=== PATIENT | female | born 1960 | race African-American/Black ===

== ENCOUNTER 2017-04-14 11:54 | Emergency (ER) | payer BC, OTHER ==
[~2017-04-14] VITALS: Ht 175.3 cm; Wt 102.3 kg
[~2017-04-14 11:54] MED LIST: AMLO5TAB22 PO; LISI-366 PO; NAPR-576 PO; PROBCAP4 PO
[2017-04-14 11:58] VITALS: BP 145/74; PULSE 82; RESP 18; TEMP 99.4; O2SAT 98
[2017-04-14] MEDS ORDERED: SODIUM CHLOR 0.9% 1000 ML INJ 1,000 ML IV ONE (12:30)
[2017-04-14] MEDS ORDERED: KETOROLAC TROMETHAMINE 30 MG/ML (IVP) VIAL IV PUSH ONE (12:30)
[2017-04-14] MEDS ORDERED: PROCHLORPERAZINE INJ 10 MG/2 ML VIAL IV PUSH ONE (12:30)
[2017-04-14] MEDS ORDERED: diphenhydrAMINE HCL 50 MG/ML VIAL IV PUSH ONE (12:30)
[2017-04-14] MEDS ORDERED: REDPOW2 (12:34)
[2017-04-14] MEDS ORDERED: GARL1CAP6 (12:34)
[2017-04-14] MEDS ORDERED: LISI40TA PO (12:34)
[2017-04-14] MEDS ORDERED: AMLO5TAB2 PO (12:34)
[2017-04-14] MEDS ORDERED: CODOIL15 (12:34)
[2017-04-14] MEDS ORDERED: FLAV3.7O (12:34)
[2017-04-14 12:56] VITALS: BP 143/76; PULSE 75; RESP 18; O2SAT 98
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
[2017-04-14] MEDS ORDERED: BUTA1CAP PO (13:27)
== END 2017-04-14 13:44 | disposition home or self-care (01) ==
LOC: PHED 11:54
DX: G44.209 Tension-type headache, unspecified, not intractable (principal); I10 Essential (primary) hypertension
CPT/HCPCS: 96361; 96374; 96375; 99284; J0780; J1200; J1885; J7030

== ENCOUNTER 2017-09-14 11:09 | Emergency (ER) | payer BC, OTHER ==
[~2017-09-14] VITALS: Ht 175.3 cm; Wt 102.6 kg
[~2017-09-14 11:09] MED LIST changes: +AMLO5TAB2 PO; -AMLO5TAB22 PO; +BUTA1CAP PO; +CODOIL15; +FLAV3.7O; +GARL1CAP6; -LISI-366 PO; +LISI40TA PO; -NAPR-576 PO; -PROBCAP4 PO; +REDPOW2
[2017-09-14 11:13] VITALS: BP 142/63; PULSE 79; RESP 16; TEMP 98.4; O2SAT 98
[2017-09-14] MEDS ORDERED: CHOLMIS5 PO (11:36)
[2017-09-14] MEDS ORDERED: GARL200T2 PO (11:36)
[2017-09-14 11:49] LABS: BILIRUBIN, URINE NEG (NEG); BLOOD, URINE LARGE (NEG); GLUCOSE,URINE NEG (NEG); KETONE, URINE NEG (NEG); NITRITE,URINE NEG (NEG); URINE COLOR YELLOW (YELLW/STRAW); URINE LEUKOCYTE ESTERASE SMALL (NEG)
[2017-09-14 11:55] LABS: SQUAMOUS EPITHELIAL CELL URINE 0-5 /hpf (0-5); WHITE BLOOD CELL CLUMPS FEW
[2017-09-14 11:56] LABS: RENAL EPITHELIAL CELLS 0-5 /hpf
--- NOTE | 2017-09-14 12:06 | PD ---
HPI Chief Complaint: Abdominal Pain Time Seen by Provider: 11:43 Travel History International Travel<30 days: No Contact w/Intl Traveler<30days: No Traveled to known affect area: No History of Present Illness HPI 56yo F with no PMH of colon CA s/p resection when she was 10yo here with c/o lower abdominal pain, increased urinary complaint for a few days. Denies any fever, chest pain, sob, n/v, vaginal bleeding or discharge. Denies any focal weakness or numbness. PFSH Past Medical History Cancer: Yes (COLON 10 YRS OLD) Cardiovascular Problems: Yes (htn on meds) Diminished Hearing: No Hypertension: Yes Tetanus Vaccination: < 5 Years Influenza Vaccination: No ?: Not LMP: NONE 40S Menopausal: Yes Past Surgical History Abdominal Surgery: Yes (COLON CA 10 YRS OLD) Section: Yes Gynecologic Surgery: Yes (3 c-sections) Social History Alcohol Use: Yes (rare wine) Tobacco Use: No Substance Use: No Allergies-Medications (Allergen,Severity, Reaction): Coded Allergies: No Known Allergies (Unverified Adverse Reaction, Unknown, 09/14/17) Reported Meds & Prescriptions Reported Meds & Active Scripts Active Reported [Cholesterol] 1 Tab PO DAILY Garlic 200 Mg Tab 1 Tab PO DAILY Cod Liver Oil 100 % Oil Unknown Dose Cinnamon (Flavoring Agent) 3.7 Ml Oil Unknown Dose Lisinopril 40 Mg Tab 40 Mg PO DAILY Amlodipine (Amlodipine Besylate) 5 Mg Tab 5 Mg PO DAILY Review of Systems Except as stated in HPI: all other systems reviewed are Neg Physical Exam Narrative GENERAL: 56yo F not in distress. SKIN: Focused skin assessment warm/dry. HEAD: Atraumatic. Normocephalic. CARDIOVASCULAR: Regular rate and rhythm. No murmur appreciated. RESPIRATORY: No accessory muscle use. Clear to auscultation. Breath sounds equal bilaterally. GASTROINTESTINAL: Abdomen soft, non-tender,+TTP periumbilical region. No rebound tenderness or guarding. +Surgical scar. MUSCULOSKELETAL: No obvious deformities. No clubbing. No cyanosis. No edema. NEUROLOGICAL: Awake and alert. No obvious cranial nerve deficits. Motor grossly within normal limits. Normal speech. PSYCHIATRIC: Appropriate mood and affect; insight and judgment normal. Data Data Last Documented VS Vital Signs Date Time Temp Pulse Resp B/P (MAP) Pulse Ox O2 Delivery O2 Flow Rate FiO2 09/14/17 11:13 98.4 79 16 142/63 (89) 98 Orders Orders Urinalysis - C+S If Indicated (09/14/17 11:12) Complete Blood Count With Diff (09/14/17 11:47) Comprehensive Metabolic Panel (09/14/17 11:47) Lipase (09/14/17 11:47) Ct Abd/Pel W Iv Contrast(Rout) (09/14/17 11:47) Urine Culture (09/14/17 11:40) Iohexol 350 Inj (Omnipaque 350 Inj) (09/14/17 12:20) Ceftriaxone Inj (Rocephin Inj) (09/14/17 12:30) Ketorolac Inj (Toradol Inj) (09/14/17 13:00) Labs Laboratory Tests Test 09/14/17 11:40 09/14/17 12:06 Urine Collection Type CLEAN CATCH Urine Color YELLOW Urine Turbidity CLOUDY Urine pH 6.0 Urine Specific [place] 1.025 Urine Protein 100 mg/dL Urine Glucose (UA) NEG mg/dL Urine Ketones NEG mg/dL Urine Occult Blood LARGE Urine Nitrite NEG Urine Bilirubin NEG Urine Urobilinogen 0.2 MG/DL Urine Leukocyte Esterase SMALL Urine RBC 50-99 /hpf Urine WBC 50-99 /hpf Urine WBC Clumps FEW Urine Squamous Epithelial Cells 0-5 /hpf Urine Renal Epithelial Cells 0-5 /hpf Microscopic Urinalysis Comment CULTURE INDICATED Urine Collection Time 11:40 White Blood Count 5.7 TH/MM3 Red Blood Count 4.61 MIL/MM3 Hemoglobin 12.1 GM/DL Hematocrit 36.9 % Mean Corpuscular Volume 80.0 FL Mean Corpuscular Hemoglobin 26.3 PG Mean Corpuscular Hemoglobin Concent 32.9 % Red Cell Distribution Width 13.2 % Platelet Count 235 TH/MM3 Mean Platelet Volume 7.8 FL Neutrophils (%) (Auto) 68.3 % Lymphocytes (%) (Auto) 21.6 % Monocytes (%) (Auto) 8.8 % Eosinophils (%) (Auto) 0.7 % Basophils (%) (Auto) 0.6 % Neutrophils # (Auto) 4.0 TH/MM3 Lymphocytes # (Auto) 1.2 TH/MM3 Monocytes # (Auto) 0.5 TH/MM3 Eosinophils # (Auto) 0.0 TH/MM3 Basophils # (Auto) 0.0 TH/MM3 CBC Comment DIFF FINAL Differential Comment Blood Urea Nitrogen 12 MG/DL Creatinine 0.68 MG/DL Random Glucose 88 MG/DL Total Protein 7.9 GM/DL Albumin 3.3 GM/DL Calcium Level 8.8 MG/DL Alkaline Phosphatase 100 U/L Aspartate Amino Transf (AST/SGOT) 20 U/L Alanine Aminotransferase (ALT/SGPT) 28 U/L Total Bilirubin 0.3 MG/DL Sodium Level 140 MEQ/L Potassium Level 4.0 MEQ/L Chloride Level 106 MEQ/L Carbon Dioxide Level 28.0 MEQ/L Anion Gap 6 MEQ/L Estimat Glomerular Filtration Rate 109 ML/MIN Lipase 132 U/L [facility] Medical Decision Making Medical Screen Exam Complete: Yes Emergency Medical Condition: Yes Differential Diagnosis UTI vs. colitis vs. cystitis Narrative Course 56yo F with urinary complaints and abdominal pain. Vital signs normal. Labs reviewed, no leukocytosis. H/H normal. CMP unremarkable. Lipase normal. UA showed WBC 50-99. Pt given ceftriaxone 1 gm IV and toradol for pain. CT a/p showed diffusely thickened bladder wall with mucosal enhancement, differential include cystitis. Pt reevaluated at bedside and feels better. Pt is well appearing and tolerating PO so will treat as outpatient. Return precautions given. Diagnosis Primary Impression: Cystitis Patient Instructions: General Instructions Departure Forms: Tests/Procedures Additional Instructions: Please follow up with your primary care physician in 2-3 days. Return to the ED if symptoms worsen. Med/Other Pt SpecificInfo: Prescription(s) given Scripts Cephalexin (Keflex) 500 Mg Cap 500 MG PO Q12H for Infection for 7 Days, #14 CAP 0 Refills Prov: MooMandy 09/14/17 Disposition: 01 DISCHARGE HOME Condition: Stable CortésMandy DO Sep 14, 2017 12:06
[2017-09-14 12:16] LABS: BASOPHIL % 0.6 % (0.0-2.0); EOSINOPHIL % 0.7 % (0.0-4.0); HEMATOCRIT 36.9 % (35.0-46.0); HEMOGLOBIN 12.1 GM/DL (11.6-15.3); LYMPH % 21.6 % (9.0-44.0); LYMPHOCYTE # 1.2 TH/MM3 (1.0-4.8); MEAN CORPUSCULAR HEMOGLOBIN 26.3 PG (27.0-34.0); MEAN CORPUSCULAR HGB CONC 32.9 % (32.0-36.0); MEAN PLATELET VOLUME 7.8 FL (7.0-11.0); MONO % 8.8 % (0.0-8.0); MONOCYTE # 0.5 TH/MM3 (0-0.9); NEUT % 68.3 % (16.0-70.0); PLATELET COUNT 235 TH/MM3 (150-450); RED BLOOD COUNT 4.61 MIL/MM3 (4.00-5.30); RED CELL DISTRIBUTION WIDTH 13.2 % (11.6-17.2); WHITE BLOOD COUNT 5.7 TH/MM3 (4.0-11.0)
[2017-09-14] MEDS ORDERED: IOHEXOL 350 MG/ML 10 ML VIAL (for RAD DIAG) IVCONTRAST ONE (12:20)
[2017-09-14 12:30] LABS: CHLORIDE 106 MEQ/L (98-107); SODIUM (NA) 140 MEQ/L (136-145)
[2017-09-14] MEDS ORDERED: cefTRIAXone INJ 1,000 MG in SODIUM CHLORIDE 0.9% INJ 100 ML IV ONE (12:30)
[2017-09-14 12:33] LABS: CALCIUM 8.8 MG/DL (8.5-10.1)
[2017-09-14 12:34] LABS: ALBUMIN 3.3 GM/DL (3.4-5.0); BLOOD UREA NITROGEN 12 MG/DL (7-18); GLUCOSE,RANDOM 88 MG/DL (74-106)
--- NOTE | 2017-09-14 12:35 | RADRPT ---
EXAM DATE/TIME: 09/14/2017 12:12 [facility] COMPARISON: No previous studies available for comparison. INDICATIONS : Lower abdominal pain. IV CONTRAST: 85 cc Omnipaque 350 (iohexol) IV ORAL CONTRAST: No oral contrast ingested. RADIATION DOSE: 20.48 CTDIvol (mGy) MEDICAL HISTORY : Carcinoma, colon. Cerebrovascular disease. Hypertension. SURGICAL HISTORY : Colon resection. section. ENCOUNTER: Initial ACUITY: 4 - 6 days PAIN SCALE: 8/10 LOCATION: Bilateral lower quadrant TECHNIQUE: Volumetric scanning of the abdomen and pelvis was performed. Using automated exposure control and ad justment of the mA and/or kV according to patient size, radiation dose was kept as low as reasonably achievable to obtain optimal diagnostic quality images. DICOM format image data is available electro nically for review and comparison. FINDINGS: Lung bases are clear. No acute findings in the liver, spleen, adrenals, kidneys or pancreas. No calci fied gallstones identified. The uterus has a slightly lobulated appearance which could indicate fibroid involvement. The bladder wall appears thickened diffusely with some mucosal enhancement. Differential diagnosis in cludes cystitis. CONCLUSION: 1. Diffusely thickened bladder wall with mucosal enhancement. Differential diagnosis includes cystiti s. 2. Slightly lobulated uterus most characteristic of fibroid involvement. Mild constipation. 3. Small hiatal hernia. Duran Michaels MD on September 14, 2017 at 12:27 Board Certified Radiologist. This report was verified electronically.
[2017-09-14 12:36] LABS: ALT (GPT) 28 U/L (10-53); AST (GOT) 20 U/L (15-37)
[2017-09-14 12:37] LABS: CREATININE 0.68 MG/DL (0.50-1.00); GLOMERULAR FILTRATION RATE 109 ML/MIN (>89)
[2017-09-14 12:38] LABS: TOTAL BILIRUBIN ADULT 0.3 MG/DL (0.2-1.0); TOTAL PROTEIN 7.9 GM/DL (6.4-8.2)
[2017-09-14 12:39] LABS: ALKALINE PHOSPHATASE 100 U/L (45-117)
[2017-09-14] MEDS ORDERED: KETOROLAC TROMETHAMINE 30 MG/ML (IVP) VIAL IV PUSH ONE (13:00)
[2017-09-14] MEDS ORDERED: CEPH-460 PO (13:07)
[2017-09-14 13:10] VITALS: BP 142/70; PULSE 103; RESP 18; O2SAT 97
== END 2017-09-14 13:35 | disposition home or self-care (01) ==
LOC: PHED 11:09
DX: N30.90 Cystitis, unspecified without hematuria (principal); I10 Essential (primary) hypertension
CPT/HCPCS: 74177; 80053; 81001; 83690; 85025; 87077; 87086; 87186; 96365; 96375; 99284; J0696; J1885; Q9967